=== PATIENT | female | born 1960 | race Caucasian/White ===

== ENCOUNTER 2023-07-26 17:22 | Emergency (ER) | payer BC, SELFPAY ==
--- NOTE | ~2023-07-26 | XR_ITS ---
EXAMINATION: XR shoulder LT min 2V, XR humerus LT DATE: 07/26/2023 18:08 INDICATION: One week of nontraumatic left shoulder and arm pain TECHNIQUE: 1. AP internally and externally rotated, AP oblique externally rotated and transscapular Y views of t he left shoulder were obtained. 2. AP and lateral views of the left humerus were obtained. COMPARISON: None FINDINGS: Normal alignment. No fracture. Glenohumeral joint is normal. Mild osteoarthritis at the left acromio clavicular joint and left elbow. Moderate lower cervical and mild to moderate thoracic spondylosis. V isualized portions of the lungs are clear. Soft tissues are unremarkable. IMPRESSION: 1. 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 No acute osseous abnormality. 2. Moderate lower cervical and mild to moderate thoracic spondylosis. Reviewed, dictated and finalized at location A. [employer] TECHNICIAN IMPRESSION: 1. 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 No acute osseous abnormality. 2. Moderate lower cervical and mild to moderate thoracic spondylosis.
[2023-07-26 17:22] VITALS: BP 109/69; PULSE 88; RESP 18; TEMP 36.7; O2SAT 98
--- NOTE | 2023-07-26 17:47 | ECG_ITS ---
Measurements Intervals [place] Rate: 82 P: 14 IA: 167 QRS: 68 QRSD: 89 T: 60 QT: 385 QTc: 450 Interpretive Statements SINUS RHYTHM NORMAL ECG NO PREVIOUS ECG AVAILABLE FOR COMPARISON Electronically Signed On 07-26-2023 19:16:59 [employer] by Ar Barbosa D.O.
--- NOTE | 2023-07-26 18:26 | ED.EXTPRO ---
HPI - Extremity Problem General Chief complaint: Extremity Problem,Nontraumatic Stated complaint: left upper arm pain/tingling. History of Present Illness HPI Narrative: This is a 63-year-old female, denies significant past medical history, presenting to the emergency department complaining of intermittent left arm pain for the past month. The patient states the pain is sharp, primarily located over the left shoulder and just distal to the left shoulder It is rated 5/10 at maximum in 0/10 at minimum. It lasts seconds to minutes at a time. She states she had a neck surgery for episode of left-sided neck pain when her pain initially began. She denies other known aggravating or alleviating factors. She denies associated fevers, chills, diaphoresis or chest pain. She denies loss of strength or sensation in the arm. Related Data Allergies Allergy/AdvReac Type Severity Reaction Status Date / Time Penicillins Allergy Unknown Verified 07/26/23 17:24 Review of Systems Review of Systems: CONSTITUTIONAL: Denies fever, chills, or sweats. CARDIOVASCULAR: Denies chest pain, palpitations, or edema. RESPIRATORY: Denies cough or dyspnea. GASTROINTESTINAL: Denies abdominal pain, nausea, vomiting, or diarrhea. GENITOURINARY: Denies dysuria or hematuria. SKIN: Denies rash or itching. MUSCULOSKELETAL: Left shoulder and arm pain Denies back pain, joint pain, or myalgia. NEUROLOGIC: Denies headache, numbness, dizziness, or weakness. PSYCHIATRIC: Denies anxiety or depression. PMFSH Past Medical History Medical History No significant past medical history Surgical History Surgical History No significant past surgical history Social History Social History Smoking status: Never smoker Alcohol intake: never Substance use: never Exam Narrative: GENERAL: Well-appearing, well-nourished, and in no acute distress. HEAD: Normocephalic, atraumatic. EYES: PERRLA and EOMI. NECK: No midline spine tenderness to palpation, no step-off or crepitus CHEST: Clear to auscultation. No respiratory distress. No wheezes rales or rhonchi HEART: Regular rate and rhythm. No murmur heard. Normal peripheral pulses. ABDOMEN: Soft, nontender, nondistended, normal active bowel sounds. EXTREMITIES: Normal range of motion. No tenderness to palpation. exam not concerning for rotator cuff tear. Tenderness at the lateral aspect of the left elbow is elicited with supination. No edema. SKIN: Warm, dry, no rash. NEURO: No focal deficits. Alert and oriented x3. PSYCH: Normal mood and affect. Course Course Emergency Course: 17:47 - I have a very low suspicion for ACS, however will obtain EKG. 18:25 - EKG not concerning for ischemia. X-ray of the shoulder and humerus show changes consistent with arthritis. Radiology also comments that there is Moderate lower cervical and mild to moderate thoracic spondylosis. I suspect the patient's pain is radicular in nature. Will discharge with recommendation for primary care follow-up. Discussed return and emergency precautions including signs/symptoms of ACS and neurovascular compromise. The patient voiced understanding and is comfortable with the plan. All questions answered to her satisfaction. Vital Signs Vital signs: Vital Signs Temperature 98.0 F 07/26/23 17:22 Pulse Rate 88 07/26/23 17:22 Respiratory Rate 18 07/26/23 17:22 Blood Pressure 109/69 07/26/23 17:22 Pulse Oximetry 98 07/26/23 17:22 Oxygen Delivery Room Air 07/26/23 17:22 Temperature 98.0 F 07/26/23 17:22 Pulse Rate 88 07/26/23 17:22 Respiratory Rate 18 07/26/23 17:22 Blood Pressure 109/69 07/26/23 17:22 Pulse Oximetry 98 07/26/23 17:22 Oxygen Delivery Room Air 07/26/23 17:22 MDM - Extremity (Nontraumatic) MDM Narrative Medical de
== END 2023-07-26 18:35 | disposition home or self-care (01) ==
PROVIDERS: Emergency Provider Preventive Medicine Aerospace Medicine
DX: M54.12 Radiculopathy, cervical region (principal); M79.622 Pain in left upper arm
CPT/HCPCS: 73030; 73060; 93005; 99283